=== PATIENT | male | born 1980 | race African-American/Black ===

== ENCOUNTER 2023-06-11 04:54 | Emergency (ER) | payer SELFPAY ==
[~2023-06-11] VITALS: Ht 180.3 cm; Wt 88.5 kg
[2023-06-11 05:07] VITALS: BP 123/69; TEMP 98.7; O2SAT 94
[2023-06-11] MEDS ORDERED: predniSONE 20 MG TABLET ONE (05:14)
[2023-06-11] MEDS ORDERED: PRED50TA PO (05:16)
[2023-06-11] MEDS ORDERED: ALBU18HF2 INH (05:16)
[2023-06-11] MEDS ORDERED: predniSONE 50 MG TABLET PO ONE (05:30)
== END 2023-06-11 05:21 | disposition home or self-care (01) ==
LOC: ER 05:00
DX: J45.909 Unspecified asthma, uncomplicated (principal); Z60.2 Problems related to living alone
CPT/HCPCS: 99283; J7512